=== PATIENT | female | born 1970 | race Caucasian/White ===

== ENCOUNTER 2017-05-03 15:26 | Emergency (ER) | payer SELFPAY ==
[~2017-05-03] VITALS: Ht 134.6 cm; Wt 68.0 kg
[2017-05-03] MEDS ORDERED: IBUP100T54 PO (15:42)
[2017-05-03] MEDS ORDERED: HYDROmorphone 2 MG/ML SYRINGE IVP ONE (16:30)
[2017-05-03 17:45] VITALS: BP 135/66
== END 2017-05-03 18:15 | disposition home or self-care (01) ==
LOC: EMS 15:29
DX: S52.512A Displaced fracture of left radial styloid process, initial encounter for closed fracture (principal); M54.2 Cervicalgia; W01.0XXA Fall on same level from slipping, tripping and stumbling without subsequent striking against object, initial encounter; Y93.E9 Activity, other interior property and clothing maintenance; Y92.89 Other specified places as the place of occurrence of the external cause; Y99.8 Other external cause status
CPT/HCPCS: 29125; 72125; 73110; 96374; 99284; J1170

== ENCOUNTER 2017-11-24 22:22 | Emergency (ER) | payer SELFPAY ==
[~2017-11-24] VITALS: Ht 129.5 cm; Wt 63.6 kg
[~2017-11-24 22:22] MED LIST: IBUP100T54 PO
[2017-11-24 22:54] LABS: BASOPHILS % (AUTO) 0.6 % (0.0-2.0); EOSINOPHILS % (AUTO) 0.8 % (1.0-6.0); HEMATOCRIT 39.3 % (36-46); HEMOGLOBIN 13.1 g/dL (12.0-16.0); LYMPHOCYTES # (AUTO) 2.5 K/uL (1.0-4.8); LYMPHOCYTES % (AUTO) 31.4 % (22.0-44.0); MEAN CORPUSCULAR HEMOGLOBIN 29.6 pg (26.0-34.0); MEAN CORPUSCULAR HGB CONC 33.3 G/dL (31.0-37.0); MEAN CORPUSCULAR VOLUME 89 fL (80-100); MONOCYTES # (AUTO) 0.6 K/uL (0.1-1.0); MONOCYTES % (AUTO) 7.3 % (2.0-9.0); NEUTROPHILS # (AUTO) 4.8 K/uL (1.8-7.7); NEUTROPHILS % (AUTO) 59.9 % (40.0-70.0); PLATELET COUNT (AUTO) 235 K/uL (150-450); RED BLOOD CELL COUNT(AUTO) 4.42 MIL/uL (4.00-5.20); RED CELL DISTRIBUTION WIDTH 14.9 % (11.5-14.5)
[2017-11-24 23:08] LABS: ANION GAP 10 mmol/L (8-16); CARBON DIOXIDE 28 mmol/L (22-29); CHLORIDE 103 mmol/L (98-107); CREATININE 0.75 mg/dL (0.60-1.30); GLOMERULAR FILTR. RATE CALC > 60 mL/min (>60); GLUCOSE,RANDOM 143 mg/dL (70-110); POTASSIUM 3.9 mmol/L (3.5-5.1); SODIUM SERUM 141 mmol/L (136-145); UREA NITROGEN, BLOOD 18 mg/dL (7-18)
[2017-11-24 23:16] LABS: ALANINE AMINOTRANSFERASE 15 U/L (12-78); ALBUMIN 3.4 g/dL (3.4-5.0); ALKALINE PHOSPHATASE 83 U/L (46-116); ASPARTATE AMINOTRANSFERASE 32 U/L (15-37); BILIRUBIN,TOTAL 0.2 mg/dL (0.1-1.0); LIPASE 83 U/L (73-393); TOTAL PROTEIN, SERUM 7.7 g/dL (6.4-8.2)
[2017-11-24] MEDS ORDERED: SODIUM CHLORIDE 0.9% 1,000 ML IV ONE (23:30)
[2017-11-24] MEDS ORDERED: MORPHINE SULFATE 4 MG/ML SYRINGE IVP ONE (23:30)
[2017-11-24] MEDS ORDERED: ONDANSETRON HCL 4 MG/2 ML VIAL IVP ONE (23:30)
[2017-11-25] MEDS ORDERED: SODIUM CHLORIDE 0.9% 100 ML ONE (02:18)
[2017-11-25] MEDS ORDERED: IOVERSOL 320 MG/ML 100 ML VIAL ONE (02:18)
[2017-11-25 03:18] VITALS: BP 119/74
[2017-11-25 03:26] LABS: APPEARANCE,URINE SLIGHTLY CLOUDY (CLEAR); PROTEIN,URINE NEGATIVE (NEGATIVE)
[2017-11-25 03:27] LABS: BILIRUBIN,URINE NEGATIVE (NEGATIVE); GLUCOSE, URINE (UA) NEGATIVE (NEGATIVE); KETONES,URINE NEGATIVE (NEGATIVE); LEUKOCYTE ESTERASE ,URINE NEGATIVE (NEGATIVE); NITRATE,URINE NEGATIVE (NEGATIVE); OCCULT BLOOD,URINE MODERATE (NEGATIVE); UROBILINOGEN,URINE 0.2 mg/dL (<=1.0)
[2017-11-25 03:30] LABS: BACTERIA,URINE Rare /HPF (None Seen); WBC,URINE 0-2 /HPF (0-5)
== END 2017-11-25 04:21 | disposition home or self-care (01) ==
LOC: EMS 22:23
DX: R10.13 Epigastric pain (principal); R11.0 Nausea; M19.90 Unspecified osteoarthritis, unspecified site
CPT/HCPCS: 36415; 74177; 76705; 80053; 81001; 83690; 84484; 84703; 85025; 96361; 96374; 96375; 99285; J2270; J2405; J7030; J7050; Q9967

== ENCOUNTER 2018-12-19 11:11 | Emergency (ER) | payer MEDICAID ==
[~2018-12-19] VITALS: Ht 142.2 cm; Wt 70.9 kg
[2018-12-19] MEDS ORDERED: KETOROLAC TROMETHAMINE 30 MG/ML VIAL IM ONE (12:15)
[2018-12-19 13:45] VITALS: BP 116/80
== END 2018-12-19 13:48 | disposition home or self-care (01) ==
LOC: EMS 11:11
DX: S80.01XA Contusion of right knee, initial encounter (principal); M19.90 Unspecified osteoarthritis, unspecified site; W19.XXXA Unspecified fall, initial encounter; Y93.89 Activity, other specified; Y92.89 Other specified places as the place of occurrence of the external cause; Y99.8 Other external cause status
CPT/HCPCS: 29505; 73562; 96372; 99283; J1885

== ENCOUNTER 2019-03-04 13:16 | Emergency (ER) | payer MEDICAID ==
[~2019-03-04] VITALS: Ht 134.6 cm; Wt 70.5 kg
[2019-03-04 14:33] LABS: APPEARANCE,URINE TURBID (CLEAR); BILIRUBIN,URINE NEGATIVE (NEGATIVE); GLUCOSE, URINE (UA) NEGATIVE (NEGATIVE); KETONES,URINE TRACE mg/dL (NEGATIVE); LEUKOCYTE ESTERASE ,URINE SMALL (NEGATIVE); NITRATE,URINE NEGATIVE (NEGATIVE); OCCULT BLOOD,URINE SMALL (NEGATIVE); PH,URINE 5.5 (5.0-8.0); PROTEIN,URINE NEGATIVE (NEGATIVE); UROBILINOGEN,URINE 0.2 mg/dL (<=1.0)
[2019-03-04 15:12] LABS: BACTERIA,URINE Moderate /HPF (None Seen); SQUAMOUS EPITHELIAL CELL,UR Many /LPF (None Seen)
[2019-03-04 15:13] LABS: RBC,URINE 0-2 /HPF (0-2)
[2019-03-04] MEDS ORDERED: SODIUM CHLORIDE 0.9% 1,000 ML IV ONE (15:15)
[2019-03-04] MEDS ORDERED: ONDANSETRON HCL 4 MG/2 ML VIAL IVP ONE (15:15)
[2019-03-04] MEDS ORDERED: KETOROLAC TROMETHAMINE 30 MG/ML VIAL IVP ONE (15:15)
[2019-03-04 15:17] LABS: RENAL EPITHELIAL CELLS,URINE Rare /LPF (None Seen); TRANSITIONAL EPI CELLS,URINE Few /LPF (None Seen); YEAST,URINE Rare /HPF (None Seen)
[2019-03-04 16:06] LABS: BASOPHILS % (AUTO) 0.4 % (0.0-2.0); EOSINOPHILS % (AUTO) 1.9 % (1.0-6.0); HEMATOCRIT 44.2 % (36-46); HEMOGLOBIN 14.4 g/dL (12.0-16.0); LYMPHOCYTES # (AUTO) 1.6 K/uL (1.0-4.8); LYMPHOCYTES % (AUTO) 25.3 % (22.0-44.0); MEAN CORPUSCULAR HEMOGLOBIN 29.8 pg (26.0-34.0); MEAN CORPUSCULAR HGB CONC 32.7 G/dL (31.0-37.0); MEAN CORPUSCULAR VOLUME 91 fL (80-100); MONOCYTES # (AUTO) 0.5 K/uL (0.1-1.0); MONOCYTES % (AUTO) 7.6 % (2.0-9.0); NEUTROPHILS % (AUTO) 64.8 % (40.0-70.0); PLATELET COUNT (AUTO) 194 K/uL (150-450); RED BLOOD CELL COUNT(AUTO) 4.85 MIL/uL (4.00-5.20); RED CELL DISTRIBUTION WIDTH 14.8 % (11.5-14.5)
[2019-03-04 16:32] LABS: ANION GAP 9 mmol/L (8-16); CALCIUM, TOTAL 9.6 mg/dL (8.8-10.5); CARBON DIOXIDE 28 mmol/L (22-29); CHLORIDE 104 mmol/L (98-107); CREATININE 0.57 mg/dL (0.60-1.30); GLOMERULAR FILTR. RATE CALC > 60 mL/min (>60); GLUCOSE,RANDOM 143 mg/dL (70-110); POTASSIUM 3.2 mmol/L (3.5-5.1); SODIUM SERUM 141 mmol/L (136-145); UREA NITROGEN, BLOOD 6 mg/dL (7-18)
[2019-03-04 16:38] LABS: ALANINE AMINOTRANSFERASE 42 U/L (12-78); ALBUMIN 3.4 g/dL (3.4-5.0); ALKALINE PHOSPHATASE 98 U/L (46-116); ASPARTATE AMINOTRANSFERASE 69 U/L (15-37); BILIRUBIN,TOTAL 0.6 mg/dL (0.1-1.0); LIPASE 51 U/L (73-393); TOTAL PROTEIN, SERUM 7.1 g/dL (6.4-8.2)
[2019-03-04 17:30] VITALS: BP 105/61
== END 2019-03-04 18:29 | disposition home or self-care (01) ==
LOC: EMS 13:17
DX: R10.11 Right upper quadrant pain (principal); R19.7 Diarrhea, unspecified; M19.90 Unspecified osteoarthritis, unspecified site
CPT/HCPCS: 36415; 76700; 80053; 81001; 83690; 85025; 87086; 96361; 96374; 96375; 99285; J1885; J2405; J7030

== ENCOUNTER 2019-04-16 13:09 | Emergency (ER) | payer SELFPAY ==
[~2019-04-16] VITALS: Ht 149.9 cm; Wt 67.7 kg
[2019-04-16] MEDS ORDERED: [UNRECOGNIZED DRUG - OTHER] PO (13:23)
[2019-04-16] MEDS ORDERED: MORPHINE SULFATE 4 MG/ML SYRINGE IVP ONE (14:15)
[2019-04-16] MEDS ORDERED: KETOROLAC TROMETHAMINE 30 MG/ML VIAL IVP ONE (17:45)
[2019-04-16 18:00] VITALS: BP 121/71
== END 2019-04-16 18:37 | disposition home or self-care (01) ==
LOC: EMS 13:10
DX: S00.83XA Contusion of other part of head, initial encounter (principal); S50.811A Abrasion of right forearm, initial encounter; G89.29 Other chronic pain; M25.531 Pain in right wrist; M19.031 Primary osteoarthritis, right wrist; M85.88 Other specified disorders of bone density and structure, other site; R03.0 Elevated blood-pressure reading, without diagnosis of hypertension; W10.1XXA Fall (on)(from) sidewalk curb, initial encounter; W01.198A Fall on same level from slipping, tripping and stumbling with subsequent striking against other object, initial encounter; Y93.89 Activity, other specified; Y92.89 Other specified places as the place of occurrence of the external cause; Y99.8 Other external cause status
CPT/HCPCS: 29125; 70450; 70486; 72125; 73080; 73090; 73110; 96374; 96375; 99284; J1885; J2270

== ENCOUNTER 2020-02-17 04:00 | Emergency (ER) | payer MEDICAID ==
[~2020-02-17 04:00] MED LIST changes: -IBUP100T54 PO; +[UNRECOGNIZED DRUG - OTHER] PO
[2020-02-17] MEDS ORDERED: ACET-66 PO (04:09)
[2020-02-17] MEDS ORDERED: NAPR250T4 PO (04:09)
[2020-02-17 04:54] LABS: BASOPHILS % (AUTO) 0.3 % (0.0-2.0); EOSINOPHILS % (AUTO) 0.3 % (1.0-6.0); HEMATOCRIT 37.3 % (36-46); HEMOGLOBIN 12.8 g/dL (12.0-16.0); LYMPHOCYTES # (AUTO) 1.5 K/uL (1.0-4.8); LYMPHOCYTES % (AUTO) 20.8 % (22.0-44.0); MEAN CORPUSCULAR HEMOGLOBIN 30.4 pg (26.0-34.0); MEAN CORPUSCULAR HGB CONC 34.3 G/dL (31.0-37.0); MEAN CORPUSCULAR VOLUME 89 fL (80-100); MONOCYTES # (AUTO) 0.5 K/uL (0.1-1.0); MONOCYTES % (AUTO) 7.1 % (2.0-9.0); NEUTROPHILS # (AUTO) 5.3 K/uL (1.8-7.7); NEUTROPHILS % (AUTO) 71.5 % (40.0-70.0); PLATELET COUNT (AUTO) 195 K/uL (150-450); RED BLOOD CELL COUNT(AUTO) 4.21 MIL/uL (4.00-5.20); RED CELL DISTRIBUTION WIDTH 14.1 % (11.5-14.5)
[2020-02-17 05:02] LABS: ANION GAP 7 mmol/L (8-16); CALCIUM, TOTAL 9.3 mg/dL (8.8-10.5); CARBON DIOXIDE 26 mmol/L (22-29); CHLORIDE 100 mmol/L (98-107); CREATININE 0.67 mg/dL (0.60-1.30); GLOMERULAR FILTR. RATE CALC > 60 mL/min (>60); GLUCOSE,RANDOM 284 mg/dL (70-110); SODIUM SERUM 133 mmol/L (136-145); UREA NITROGEN, BLOOD 6 mg/dL (7-18)
[2020-02-17 05:08] LABS: ALANINE AMINOTRANSFERASE 109 U/L (12-78); ALBUMIN 3.2 g/dL (3.4-5.0); ALKALINE PHOSPHATASE 138 U/L (46-116); ASPARTATE AMINOTRANSFERASE 351 U/L (15-37); BILIRUBIN,TOTAL 0.4 mg/dL (0.1-1.0); CREATINE KINASE, TOTAL ONLY 48 U/L (26-192); TOTAL PROTEIN, SERUM 7.6 g/dL (6.4-8.2)
[2020-02-17 05:09] LABS: PROTHROMBIN TIME 10.1 SEC (9.4-11.6)
[2020-02-17 05:21] LABS: APPEARANCE,URINE CLEAR (CLEAR); BILIRUBIN,URINE NEGATIVE (NEGATIVE); GLUCOSE, URINE (UA) >=1000 mg/dL (NEGATIVE); KETONES,URINE 40 mg/dL (NEGATIVE); LEUKOCYTE ESTERASE ,URINE NEGATIVE (NEGATIVE); NITRATE,URINE NEGATIVE (NEGATIVE); OCCULT BLOOD,URINE NEGATIVE (NEGATIVE); PH,URINE 7.5 (5.0-8.0); PROTEIN,URINE NEGATIVE (NEGATIVE); UROBILINOGEN,URINE 0.2 mg/dL (<=1.0)
[2020-02-17 05:27] LABS: BACTERIA,URINE None Seen /HPF (None Seen); RBC,URINE 0-2 /HPF (0-2); SQUAMOUS EPITHELIAL CELL,UR Few /LPF (None Seen); WBC,URINE 0-2 /HPF (0-5)
[2020-02-17] MEDS ORDERED: ALBUTEROL SULFATE HFA 90 MCG/PUFF 8 GM INHALER IH ONE (05:30)
[2020-02-17 05:34] LABS: B-TYPE NATRIURETIC PEPTIDE 23 pg/mL (0-100)
[2020-02-17 06:07] VITALS: BP 122/82
== END 2020-02-17 06:33 | disposition home or self-care (01) ==
LOC: EMS 04:00
DX: R73.9 Hyperglycemia, unspecified (principal); R06.02 Shortness of breath; R74.8 Abnormal levels of other serum enzymes; R05 Cough; Z88.6 Allergy status to analgesic agent
CPT/HCPCS: 93005; 94640; J3535; 36415-L1; 36415-TC; 71045-TC

== ENCOUNTER 2022-02-18 22:09 | Emergency (ER) | payer MEDICAID, OTHER ==
[~2022-02-18] VITALS: Ht 139.7 cm; Wt 59.1 kg
[~2022-02-18 22:09] MED LIST changes: +ACET-3385 PO; +NAPR-1197 PO; -[UNRECOGNIZED DRUG - OTHER] PO
[2022-02-19] MEDS ORDERED: SODIUM CHLORIDE 0.9% 1,000 ML IV ONE (01:15)
[2022-02-19] MEDS ORDERED: FAMOTIDINE 10 MG/ML 2 ML VIAL IVP ONE (01:15)
[2022-02-19 01:35] LABS: BASOPHILS % (AUTO) 0.2 % (0.0-2.0); EOSINOPHILS % (AUTO) 0.3 % (1.0-6.0); HEMATOCRIT 34.6 % (36-46); HEMOGLOBIN 11.8 g/dL (12.0-16.0); LYMPHOCYTES # (AUTO) 0.9 K/uL (1.0-4.8); LYMPHOCYTES % (AUTO) 8.9 % (22.0-44.0); MEAN CORPUSCULAR HGB CONC 34.1 G/dL (31.0-37.0); MEAN CORPUSCULAR VOLUME 88 fL (80-100); MONOCYTES # (AUTO) 0.8 K/uL (0.1-1.0); MONOCYTES % (AUTO) 7.2 % (2.0-9.0); NEUTROPHILS # (AUTO) 8.8 K/uL (1.8-7.7); NEUTROPHILS % (AUTO) 83.4 % (40.0-70.0); PLATELET COUNT (AUTO) 219 K/uL (150-450); RED BLOOD CELL COUNT(AUTO) 3.92 MIL/uL (4.00-5.20); RED CELL DISTRIBUTION WIDTH 13.8 % (11.5-14.5)
[2022-02-19 01:46] LABS: ANION GAP 11 mmol/L (8-16); CALCIUM, TOTAL 8.7 mg/dL (8.8-10.5); CARBON DIOXIDE 24 mmol/L (22-29); CHLORIDE 106 mmol/L (98-107); CREATININE 0.61 mg/dL (0.60-1.30); GLOMERULAR FILTR. RATE CALC > 60 mL/min (>60); GLUCOSE,RANDOM 127 mg/dL (70-110); POTASSIUM 3.7 mmol/L (3.5-5.1); SODIUM SERUM 141 mmol/L (136-145); UREA NITROGEN, BLOOD 11 mg/dL (7-18)
[2022-02-19 01:53] LABS: ALANINE AMINOTRANSFERASE 12 U/L (12-78); ALBUMIN 3.2 g/dL (3.4-5.0); ALKALINE PHOSPHATASE 89 U/L (46-116); ASPARTATE AMINOTRANSFERASE 17 U/L (15-37); BILIRUBIN,TOTAL 0.4 mg/dL (0.1-1.0); LIPASE 33 U/L (73-393); TOTAL PROTEIN, SERUM 7.1 g/dL (6.4-8.2)
[2022-02-19] MEDS ORDERED: SODIUM CHLORIDE 0.9% 100 ML ONE (01:55)
[2022-02-19] MEDS ORDERED: IOHEXOL 350 MG/ML 100 ML VIAL ONE (01:55)
[2022-02-19 02:24] LABS: APPEARANCE,URINE HAZY (CLEAR); BILIRUBIN,URINE NEGATIVE (NEGATIVE); GLUCOSE, URINE (UA) NEGATIVE (NEGATIVE); KETONES,URINE NEGATIVE (NEGATIVE); LEUKOCYTE ESTERASE ,URINE LARGE (NEGATIVE); NITRATE,URINE POSITIVE (NEGATIVE); OCCULT BLOOD,URINE MODERATE (NEGATIVE); PH,URINE 5.5 (5.0-8.0); PROTEIN,URINE 30-70 mg/dL (NEGATIVE); SPECIFIC GRAVITIY, URINE 1.018 (1.003-1.030); UROBILINOGEN,URINE <=1.0 mg/dL (<=1.0)
[2022-02-19 02:34] LABS: BACTERIA,URINE Moderate /HPF (None Seen)
[2022-02-19] MEDS ORDERED: FAMO20 PO (04:39)
[2022-02-19 05:01] VITALS: BP 129/88
== END 2022-02-19 05:19 | disposition home or self-care (01) ==
LOC: EMS 22:17
DX: R10.13 Epigastric pain (principal); K29.70 Gastritis, unspecified, without bleeding; M19.90 Unspecified osteoarthritis, unspecified site; Z98.890 Other specified postprocedural states
CPT/HCPCS: 99285; 80053; 81001; 82962; 83690; 84484; 85025; 36415; 87086; 93005; 74177; 96374; 96361; J3490; Q9967; J7030; J7050

== ENCOUNTER 2022-12-03 01:03 | Emergency (ER) | payer OTHER ==
[~2022-12-03] VITALS: Ht 139.7 cm; Wt 69.5 kg
[~2022-12-03 01:03] MED LIST changes: -ACET-3385 PO; +FAMO20 PO
[2022-12-03] MEDS ORDERED: LEVO50TA11 PO (01:11)
[2022-12-03] MEDS ORDERED: ATOR-2 PO (01:12)
[2022-12-03] MEDS ORDERED: IBUPROFEN 600 MG TABLET PO ONE (01:30)
[2022-12-03 03:00] VITALS: BP 135/86
== END 2022-12-03 05:28 | disposition home or self-care (01) ==
LOC: EMS 01:04
DX: S93.401A Sprain of unspecified ligament of right ankle, initial encounter (principal); M19.90 Unspecified osteoarthritis, unspecified site; E11.9 Type 2 diabetes mellitus without complications; Z98.890 Other specified postprocedural states; W01.0XXA Fall on same level from slipping, tripping and stumbling without subsequent striking against object, initial encounter; Y93.89 Activity, other specified; Y92.89 Other specified places as the place of occurrence of the external cause; Y99.8 Other external cause status
CPT/HCPCS: 99283

== ENCOUNTER 2023-12-29 14:13 | Emergency (ER) | payer OTHER ==
[~2023-12-29] VITALS: Ht 137.2 cm; Wt 61.8 kg
[~2023-12-29 14:13] MED LIST changes: +ATOR-2 PO; +LEVO50TA11 PO
[2023-12-29] MEDS ORDERED: METF-1211 PO (14:22)
[2023-12-29] MEDS ORDERED: SULF500T60 PO (14:22)
[2023-12-29] MEDS ORDERED: LEVO50 PO (14:22)
[2023-12-29 15:11] LABS: BASOPHILS % (AUTO) 0.1 % (0.0-2.0); EOSINOPHILS % (AUTO) 1.7 % (1.0-6.0); HEMATOCRIT 37.8 % (36-46); HEMOGLOBIN 12.8 g/dL (12.0-16.0); LYMPHOCYTES # (AUTO) 1.6 K/uL (1.0-4.8); LYMPHOCYTES % (AUTO) 24.9 % (22.0-44.0); MEAN CORPUSCULAR HEMOGLOBIN 31.1 pg (26.0-34.0); MEAN CORPUSCULAR HGB CONC 33.8 G/dL (31.0-37.0); MEAN CORPUSCULAR VOLUME 92 fL (80-100); MONOCYTES # (AUTO) 0.5 K/uL (0.1-1.0); MONOCYTES % (AUTO) 7.2 % (2.0-9.0); NEUTROPHILS # (AUTO) 4.2 K/uL (1.8-7.7); NEUTROPHILS % (AUTO) 66.1 % (40.0-70.0); PLATELET COUNT (AUTO) 183 K/uL (150-450); RED BLOOD CELL COUNT(AUTO) 4.11 MIL/uL (4.00-5.20); RED CELL DISTRIBUTION WIDTH 14.3 % (11.5-14.5); WHITE BLOOD COUNT (AUTO) 6.4 K/uL (4.5-11.0)
[2023-12-29 15:23] LABS: ANION GAP 9 mmol/L (8-16); CALCIUM, TOTAL 9.7 mg/dL (8.8-10.5); CARBON DIOXIDE 28 mmol/L (22-29); CHLORIDE 105 mmol/L (98-107); CREATININE 0.49 mg/dL (0.60-1.30); GLOMERULAR FILTR. RATE CALC > 60 mL/min (>60); GLUCOSE,RANDOM 93 mg/dL (70-110); POTASSIUM 4.1 mmol/L (3.5-5.1); SODIUM SERUM 142 mmol/L (136-145); UREA NITROGEN, BLOOD 7 mg/dL (7-18)
[2023-12-29 15:30] LABS: ALANINE AMINOTRANSFERASE 16 U/L (12-78); ALBUMIN 3.6 g/dL (3.4-5.0); ALKALINE PHOSPHATASE 84 U/L (46-116); ASPARTATE AMINOTRANSFERASE 21 U/L (15-37); BILIRUBIN,TOTAL 0.7 mg/dL (0.1-1.0); LIPASE 14 U/L (16-77); TOTAL PROTEIN, SERUM 7.5 g/dL (6.4-8.2); TROPONIN I-HIGH SENSITIVITY Less Than 4 ng/L (<51)
[2023-12-29 15:38] LABS: APPEARANCE,URINE HAZY (CLEAR); BILIRUBIN,URINE NEGATIVE (NEGATIVE); COLOR,URINE YELLOW (YELLOW); GLUCOSE, URINE (UA) NEGATIVE (NEGATIVE); KETONES,URINE TRACE mg/dL (NEGATIVE); LEUKOCYTE ESTERASE ,URINE LARGE (NEGATIVE); NITRATE,URINE NEGATIVE (NEGATIVE); OCCULT BLOOD,URINE SMALL (NEGATIVE); PROTEIN,URINE TRACE mg/dL (NEGATIVE); SPECIFIC GRAVITIY, URINE 1.018 (1.003-1.030); UROBILINOGEN,URINE <=1.0 mg/dL (<=1.0)
[2023-12-29 15:53] LABS: BACTERIA,URINE Many /HPF (None Seen); SQUAMOUS EPITHELIAL CELL,UR Many /LPF (None Seen); WBC,URINE >100 /HPF (0-5)
[2023-12-29] MEDS: SODIUM CHLORIDE 0.9% 1,000 ML IV ONE (16:40)
[2023-12-29] MEDS: KETOROLAC TROMETHAMINE 30 MG/ML VIAL IVP ONE (16:41)
[2023-12-29] MEDS: CefTRIAXone 1 GM/DEXTROSE 50 ML IV ONE (16:41)
[2023-12-29] MEDS: ONDANSETRON HCL 4 MG/2 ML VIAL IVP ONE (16:41)
[2023-12-29 20:30] VITALS: TEMP 98.9
[2023-12-29] MEDS ORDERED: AMOX-457 PO (20:32)
[2023-12-29] MEDS ORDERED: TRAM50TA5 PO (20:32)
[2023-12-29] MEDS: AMOX TR/POT CLAV 875 MG/125 MG TABLET PO ONE (21:14)
[2023-12-29 21:45] VITALS: BP 124/67; PULSE 75; RESP 18
== END 2023-12-29 23:23 | disposition home or self-care (01) ==
LOC: EDUNIT# 14:13 → EMS 14:13
DX: K57.92 Diverticulitis of intestine, part unspecified, without perforation or abscess without bleeding (principal); N39.0 Urinary tract infection, site not specified; M19.90 Unspecified osteoarthritis, unspecified site; E11.9 Type 2 diabetes mellitus without complications; E03.9 Hypothyroidism, unspecified; Z98.890 Other specified postprocedural states
CPT/HCPCS: 99285; 74176; 96365; 96375; 80053; 81001; 82962; 83690; 84484; 85025; 36415; 87086; 87186; 93005; J0696; J1885; J2405; J7030

== ENCOUNTER 2025-02-04 08:57 | Emergency (ER) | payer OTHER ==
[~2025-02-04] VITALS: Ht 142.2 cm; Wt 70.0 kg
[~2025-02-04 08:57] MED LIST changes: +AMOX-457 PO; +LEVO50 PO; -LEVO50TA11 PO; +METF-1211 PO; +SULF500T60 PO; +TRAM50TA5 PO
[2025-02-04 09:06] VITALS: BP 108/66; PULSE 84; RESP 16; TEMP 97.9; O2SAT 98
[2025-02-04] MEDS ORDERED: HYDR25TA83 PO (10:36)
[2025-02-05 07:20] LABS: GLUCOMETER DEV NAME(LOC) ER.7; GLUCOSE,POINT OF CARE 126 MG/DL (70-110)
== END 2025-02-04 11:36 | disposition home or self-care (01) ==
LOC: EMS 08:58
DX: F41.9 Anxiety disorder, unspecified (principal); E11.9 Type 2 diabetes mellitus without complications; E03.9 Hypothyroidism, unspecified; M19.90 Unspecified osteoarthritis, unspecified site; Z98.890 Other specified postprocedural states; Z79.899 Other long term (current) drug therapy
CPT/HCPCS: 82962; 93005; 99283

== ENCOUNTER 2025-02-07 08:59 | Inpatient (IN) | payer OTHER ==
[~2025-02-07] VITALS: Ht 152.4 cm; Wt 75.0 kg
[~2025-02-07 08:59] MED LIST changes: +HYDR25TA83 PO
[2025-02-07 09:39] LABS: PLATELET COUNT (AUTO) 185 K/uL (150-450); RED BLOOD CELL COUNT(AUTO) 3.63 MIL/uL (4.00-5.20); RED CELL DISTRIBUTION WIDTH 16.8 % (11.5-14.5); WHITE BLOOD COUNT (AUTO) 7.2 K/uL (4.5-11.0)
[2025-02-07 09:43] LABS: CALCIUM, TOTAL 8.6 mg/dL (8.8-10.5); CREATININE 0.53 mg/dL (0.60-1.30); GLOMERULAR FILTR. RATE CALC > 60 mL/min (>60); GLUCOSE,RANDOM 125 mg/dL (70-110); SODIUM SERUM 144 mmol/L (136-145); UREA NITROGEN, BLOOD 1 mg/dL (7-18)
[2025-02-07 09:50] LABS: ASPARTATE AMINOTRANSFERASE 92.0 U/L (15-37); TOTAL PROTEIN, SERUM 5.8 g/dL (6.4-8.2)
[2025-02-07] MEDS ORDERED: SODIUM CHLORIDE 0.9% 100 ML ONE (10:23)
[2025-02-07] MEDS ORDERED: IOHEXOL 350 MG/ML 100 ML VIAL ONE (10:23)
[2025-02-07] MEDS: MORPHINE SULFATE 2 MG/ML SYRINGE IVP ONE ×2 (10:33→13:27)
[2025-02-07] MEDS: SODIUM CHLORIDE 0.9% 1,000 ML IV ONE ×2 (10:33→15:13)
[2025-02-07 11:32] LABS: APPEARANCE,URINE CLEAR (CLEAR); GLUCOSE, URINE (UA) NEGATIVE (NEGATIVE); LEUKOCYTE ESTERASE ,URINE NEGATIVE (NEGATIVE); NITRATE,URINE NEGATIVE (NEGATIVE); OCCULT BLOOD,URINE NEGATIVE (NEGATIVE); SPECIFIC GRAVITIY, URINE 1.004 (1.003-1.030)
[2025-02-07] MEDS: *CLINICAL-LEVOFLOXACIN IVPB DOSING CLINICAL ONE (14:41)
[2025-02-07] MEDS ORDERED: ONDANSETRON HCL 4 MG/2 ML VIAL IVP PRN (14:45)
[2025-02-07] MEDS ORDERED: BISACODYL 10 MG RECTAL RECTAL SUPPOSITORY PR PRN (14:45)
[2025-02-07] MEDS ORDERED: ACETAMINOPHEN 325 MG TABLET PO PRN (14:45)
[2025-02-07] MEDS ORDERED: ZOLPIDEM TARTRATE 5 MG TABLET PO PRN (14:45)
[2025-02-07] MEDS ORDERED: DEXTROSE 50%-WATER 25 GM/50 ML SYRINGE IVP PRN (14:45)
[2025-02-07] MEDS ORDERED: HYDROCODONE/ACETAMINOPHEN 5-325 MG TABLET PO PRN (14:45)
[2025-02-07] MEDS ORDERED: MAGNESIUM HYDROXIDE SUSPENSION 30 ML UDCUP PO PRN (14:45)
[2025-02-07] MEDS: HEPARIN SODIUM,PORCINE 5,000 UNITS/ML VIAL SQ SCH (16:31)
[2025-02-07] MEDS: LEVOFLOXACIN 750 MG/D5% WATER 150 ML IV SCH (16:31)
[2025-02-07 17:23] VITALS: BP 105/59; PULSE 79; RESP 18; TEMP 98.1; O2SAT 95
[2025-02-07 19:00] LABS: GLUCOMETER DEV NAME(LOC) 6S.2; GLUCOSE,POINT OF CARE 114 MG/DL (70-110)
[2025-02-07 20:25] VITALS: BP 113/56; PULSE 77; RESP 18; TEMP 98.6; O2SAT 96
[2025-02-07] MEDS: DOCUSATE SODIUM 100 MG CAPSULE PO SCH (20:55)
[2025-02-07] MEDS: MORPHINE SULFATE 2 MG/ML SYRINGE IVP PRN (20:55)
[2025-02-08 01:51] LABS: GLUCOMETER DEV NAME(LOC) 6S.1D; GLUCOSE,POINT OF CARE 97 MG/DL (70-110)
[2025-02-08 05:06] VITALS: BP 117/71; PULSE 78; RESP 18; TEMP 98.1; O2SAT 95
[2025-02-08] MEDS: INSULIN LISPRO 100 UNITS/ML SQ PRN (05:54)
[2025-02-08] MEDS: LEVOTHYROXINE SODIUM 50 MCG TABLET PO SCH (06:19)
[2025-02-08 06:45] LABS: GLUCOMETER DEV NAME(LOC) 6S.1D; GLUCOSE,POINT OF CARE 174 MG/DL (70-110)
[2025-02-08 07:32] VITALS: BP 113/52; PULSE 74; RESP 18; TEMP 98.6; O2SAT 95
[2025-02-08] MEDS: PANTOPRAZOLE SODIUM 40 MG/VIAL IVP SCH (08:28)
[2025-02-08] MEDS: ATORVASTATIN CALCIUM 40 MG TABLET PO SCH (08:29)
[2025-02-08] MEDS ORDERED: PANTOPRAZOLE SODIUM 40 MG DR TABLET PO SCH (09:00)
[2025-02-08 11:30] LABS: GLUCOMETER DEV NAME(LOC) 6N.2C; GLUCOSE,POINT OF CARE 187 MG/DL (70-110)
== END 2025-02-08 13:47 | disposition home or self-care (01) | DRG 244 ==
LOC: EMS 08:59 → EDH 13:47 → 6S 17:07
PROVIDERS: ADMIT Internal Medicine; ATTEND Internal Medicine
DX: K57.30 Diverticulosis of large intestine without perforation or abscess without bleeding (principal); E27.40 Unspecified adrenocortical insufficiency; E03.9 Hypothyroidism, unspecified; E66.9 Obesity, unspecified; R91.1 Solitary pulmonary nodule; E11.9 Type 2 diabetes mellitus without complications; E78.5 Hyperlipidemia, unspecified; Z68.32 Body mass index [BMI] 32.0-32.9, adult; Z79.899 Other long term (current) drug therapy
CPT/HCPCS: 74177; 80048; 80076; 81003; 82962; 83690; 85025; 96361; 96365; 96372; 96375; 96376; 99285; J1644; J1956; J2270; J2470; J7030; J7050; 36415-L1; 36415-TC